=== PATIENT | female | born 1995 | race Caucasian/White ===

== ENCOUNTER 2021-05-22 18:05 | Emergency (ER) | payer MEDICAID ==
[~2021-05-22] VITALS: Ht 172 cm; Wt 63.5 kg
[2021-05-22 18:39] LABS: BILIRUBIN,URINE NEGATIVE (NEGATIVE); CLARITY,URINE CLEAR; COLOR,URINE YELLOW; GLUCOSE, URINE (UA) NEGATIVE (NEGATIVE); KETONES,URINE NEGATIVE (NEGATIVE); LEUKOCYTE ESTERASE ,URINE NEGATIVE (NEGATIVE); NITRITE,URINE NEGATIVE (NEGATIVE); PROTEIN,URINE NEGATIVE (NEGATIVE)
[2021-05-22 18:45] LABS: BACTERIA,URINE NEGATIVE /HPF; SQUAMOUS EPITHELIAL CELL,UR RARE /HPF
[2021-05-22 18:58] LABS: BASOPHILS % (AUTO) 0 % (0-10); EOSINOPHILS # (AUTO) 0.5 10^3/uL (0.0-0.3); EOSINOPHILS % (AUTO) 3 % (0-10); HEMATOCRIT 44 % (35-52); HEMOGLOBIN 14.4 g/dL (11.5-16.0); LYMPHOCYTES # (AUTO) 2.1 10^3/uL (1.0-4.0); LYMPHOCYTES % (AUTO) 16 % (12-44); MEAN CORPUSCULAR HEMOGLOBIN 31 pg (25-34); MEAN CORPUSCULAR HGB CONC 33 g/dL (32-36); MEAN CORPUSCULAR VOLUME 93 fL (80-99); MEAN PLATELET VOLUME 9.6 fL (9.0-12.2); MONOCYTES # (AUTO) 1.4 10^3/uL (0.0-1.0); MONOCYTES % (AUTO) 10 % (0-12); NEUTROPHILS # (AUTO) 9.6 10^3/uL (1.8-7.8); NEUTROPHILS % (AUTO) 70 % (42-75); PLATELET COUNT 301 10^3/uL (130-400); WHITE BLOOD COUNT 13.7 10^3/uL (4.3-11.0)
[2021-05-22] MEDS ORDERED: CEPH500T PO (19:09)
--- NOTE | 2021-05-22 19:10 | ED Cough/URI ---
General Chief Complaint: COVID19 Suspect/Confirmed Stated Complaint: BODY ACHES, LOSS OF TASTE/SMELL, EAR PAIN, CHILLS Nursing Triage Note: PT AMB TO ER WITH C/O HEADACHE, FEVER, AND NAUSEA FOR A FEW DAYS (JEANA GRIMES) History of Present Illness Date Seen by Provider: May 22, 2021 Time Seen by Provider: 18:20 Initial Comments 25 year old female presents with headache, sinus pressure, and intermittent nausea for approximately 1 week. She is received her COVID vaccine in spring 2020. She did not receive a booster. She has not had an influenza vaccine. She does not have a PCP in [place], just moved her. 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 She denies any drug use since rehab. In addition, she reports occ vaginal discharge and pain. She had chlamydia in the past, and was treated however her partner has not been. She also reports that he has discharge and pain at times. He has not been tested. Timing/Duration: just prior to arrival Severity/Quality: dry cough Prior Episodes/Possible Cause: no prior episodes Modifying Factors: Improves With Lying Down, Improves With Rest Associated Symptoms: cough, facial pain, fever/chills, nasal congestion, sinus infection (JEANA GRIMES) Allergies and Home Medications Allergies Coded Allergies: No Known Drug Allergies (Unverified , 05/22/21) Patient Home Medication List Home Medication List Reviewed: Yes (JEANA GRIMES) Doxycycline Hyclate (Doxycycline Hyclate) 100 Mg Tablet, 100 MG PO BID Prescribed by: JEANA GRIMES on 05/22/211929 Review of Systems Review of Systems Constitutional: see HPI, fever, malaise EENTM: see HPI, nose congestion Respiratory: see HPI, cough (dry) Cardiovascular: no symptoms reported, see HPI Gastrointestinal: no symptoms reported, see HPI (JEANA GRIMES) All Other Systems Reviewed Negative Unless Noted: Yes (JEANA GRIMES) Past Wiuslfy-Aiebum-Kjwnhr Hx Patient Social History Tobacco Use?: Yes Tobacco type used: Cigarettes Smoking Status: Current Everyday Smoker Substance use?: No Additional substance use comme: FORMER IV USER Alcohol Use?: No Pt feels they are or have been: No (JEANA GRIMES) Immunizations Up To Date Influenza Vaccine Up-to-Date: No; Not Current First/Initial COVID19 Vaccinat: AUGUST 2020 Second COVID19 Vaccination Jacky: SEPTEMBER 2020 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 oz. kg; 21.00 BMI Method: General Appearance: WD/WN, no apparent distress HEENT: PERRL/EOMI, TMs normal, pharynx normal; No pharyngeal erythema, No tonsillar exudate; other (Mild frontal and maxillary sinus tenderness) Neck: non-tender, full range of motion, supple, normal inspection Respiratory: chest non-tender, lungs clear, normal breath sounds Cardiovascular: normal peripheral pulses, regular rate, rhythm, no edema Gastrointestinal: normal bowel sounds, non tender, soft Extremities: normal range of motion, non-tender, normal inspection, normal capillary refill Neurologic/Psychiatric: no motor/sensory deficits, alert, normal mood/affect, oriented x 3 Skin: normal color, warm/dry (JEANA GRIMES) Procedures/Interventions Wound Location: Lower Extremities (Right knee, anterior) Wound Length (cm): 2.5 Wound's Depth, Shape: superficial Wound Explored: clean Irrigated w/ Saline (ccs): 500 Betadine Prep?: Yes Anesthesia: 1% Lidocaine Volume Anesthetic (ccs): 4 Wound Debrided: minimal Suture: Ethlion Suture Size: 4-0 Number of Sutures: 3 Sterile Dressing Applied?: Yes Progress Patient tolerated procedure well, sterile bulky dressing applied. (JEANA GRIMES) Progress/Results/Core Measures Suspected Sepsis SIRS Temperature: Pulse: 89 Respiratory Rate: 18 Laboratory Tests 05/22/21 18:50: White Blood Count 13.7H Blood Pressure 117 /84 Mean: 95 Laboratory Tests 05/22/21 18:50: Creatinine 0.73, Platelet Count 301, Total Bilirubin 0.3 (JEANA GRIMES) Results/Orders Lab Results Laboratory Tests Test 05/22/21 18:20 05/22/21 18:30 05/22/21 18:50 Range/Units Urine Color YELLOW Urine Clarity CLEAR Urine pH 6.0 5-9 Urine Specific [place] 1.010 L 1.016-1.022 Urine Protein NEGATIVE NEGATIVE Urine Glucose (UA) NEGATIVE NEGATIVE Urine Ketones NEGATIVE NEGATIVE Urine Nitrite NEGATIVE NEGATIVE Urine Bilirubin NEGATIVE NEGATIVE Urine Urobilinogen 0.2 < = 1.0 MG/DL Urine Leukocyte Esterase NEGATIVE NEGATIVE Urine RBC (Auto) NEGATIVE NEGATIVE Urine RBC NONE /HPF Urine WBC 2-5 /HPF Urine Squamous Epithelial Cells RARE /HPF Urine Crystals NONE /LPF Urine Bacteria NEGATIVE /HPF Urine Casts NONE /LPF Urine Mucus NEGATIVE /LPF Urine Culture Indicated NO Urine Chlamydia trachomatis RNA Not Detected Not Detected Urine Neisseria gonorrhoeae RNA Not Detected Not Detected Coronavirus (COVID-19)(PCR) Negative Negative Influenza Type A Antigen NEGATIVE NEGATIVE Influenza Type B Antigen NEGATIVE NEGATIVE SARS-CoV-2 RNA (RT-PCR) Negative Negative White Blood Count 13.7 H 4.3-11.0 10^3/uL Red Blood Count 4.66 3.80-5.11 10^6/uL Hemoglobin 14.4 11.5-16.0 g/dL Hematocrit 44 35-52 % Mean Corpuscular Volume 93 80-99 fL Mean Corpuscular Hemoglobin 31 25-34 pg Mean Corpuscular Hemoglobin Concent 33 32-36 g/dL Red Cell Distribution Width 11.4 10.0-14.5 % Platelet Count 301 130-400 10^3/uL Mean Platelet Volume 9.6 9.0-12.2 fL Immature Granulocyte % (Auto) 0 % Neutrophils (%) (Auto) 70 42-75 % Lymphocytes (%) (Auto) 16 12-44 % Monocytes (%) (Auto) 10 0-12 % Eosinophils (%) (Auto) 3 0-10 % Basophils (%) (Auto) 0 0-10 % Neutrophils # (Auto) 9.6 H 1.8-7.8 10^3/uL Lymphocytes # (Auto) 2.1 1.0-4.0 10^3/uL Monocytes # (Auto) 1.4 H 0.0-1.0 10^3/uL Eosinophils # (Auto) 0.5 H 0.0-0.3 10^3/uL Basophils # (Auto) 0.0 0.0-0.1 10^3/uL Immature Granulocyte # (Auto) 0.0 0.0-0.1 10^3/uL Sodium Level 137 135-145 MMOL/L Potassium Level 3.5 L 3.6-5.0 MMOL/L Chloride Level 107 98-107 MMOL/L Carbon Dioxide Level 21 21-32 MMOL/L Anion Gap 9 5-14 MMOL/L Blood Urea Nitrogen 10 7-18 MG/DL Creatinine 0.73 0.60-1.30 MG/DL Estimat Glomerular Filtration Rate 99 BUN/Creatinine Ratio 14 Glucose Level 77 70-105 MG/DL Calcium Level 9.6 8.5-10.1 MG/DL Corrected Calcium 9.4 8.5-10.1 MG/DL Total Bilirubin 0.3 0.1-1.0 MG/DL Aspartate Amino Transf (AST/SGOT) 49 H 5-34 U/L Alanine Aminotransferase (ALT/SGPT) 110 H 0-55 U/L Alkaline Phosphatase 70 40-136 U/L Total Protein 8.9 H 6.4-8.2 GM/DL Albumin 4.3 3.2-4.5 GM/DL (LEMUEL,ROSHAN K DO) Vital Signs/I&O 05/22/21 05/22/21 18:20 19:57 Temp 37.1 37.1 Pulse 89 84 Resp 18 18 B/P (MAP) 117/84 (95) 116/82 Pulse Ox 98 98 O2 Delivery Room Air Room Air (LEMUELROSHAN K DO) Vital Signs/I&O Capillary Refill : (JEANA GRIMES) Blood Pressure Mean: 95 Departure Impression Primary Impression: URI (upper respiratory infection) Qualified Codes: J06.9 - Acute upper respiratory infection, unspecified Additional Impressions: Person under investigation for COVID-19 Screening for STD (sexually transmitted disease) Disposition: 01 HOME, SELF-CARE Condition: Improved Departure-Patient Inst. Decision time for Depature: 18:50 (JEANA GRIMES) Referrals: [facility]/K Patient Instructions: COVID-19 (DC), Chlamydia (DC), Gonorrhea (DC), Viral Upper Respiratory Infection, Adult (DC) Add. Discharge Instructions: Establish care with Dr. Galen Bertrand at [facility], call for appt. No sexual intercourse until you complete antibiotics and your partner is treated and finishes all medications. We will call you with the STD testing results. Take antibiotics as prescribed. Take an immune multivitamin that has vitamin C, D and zinc. Increase water intake, 16 ounces every 2 hours while awake. Alternate between Tylenol 650 mg and ibuprofen 600 mg every 4 hours for pain or fever. Use Afrin nasal spray for 4 days and then discontinue, this will help with the sinus pressure. You can alternate between DayQuil and NyQuil for respiratory symptoms. You can go to [facility] Walk In care for non emergent medical concerns. We will notify you at the send out Covid test results. Return to Emergency Dept for new, urgent healthcare needs. Scripts Doxycycline Hyclate (Doxycycline Hyclate) 100 Mg Tablet 100 MG PO BID, #14 TAB 0 Refills Prov: JEANA GRIMES 05/22/21 ATTENDING PHYSICIAN NOTE: I WAS PHYSICALLY PRESENT ER PHYSICIAN WHEN THIS PATIENT WAS IN ER, BUT I WAS NOT INVOLVED IN ANY DECISION MAKING OR ANY CARE OF THIS PATIENT. (ROSHAN HDEZ DO) Copy Copies To 1: GALEN BERTRAND MD, AMY ARNP May 22, 2021 19:10 ROSHAN HDEZ DO May 26, 2021 06:17
[2021-05-22 19:26] LABS: ALBUMIN 4.3 GM/DL (3.2-4.5); POTASSIUM 3.5 MMOL/L (3.6-5.0)
[2021-05-22 19:27] LABS: CALCIUM 9.6 MG/DL (8.5-10.1)
[2021-05-22 19:29] LABS: TOTAL PROTEIN 8.9 GM/DL (6.4-8.2)
[2021-05-22 19:30] LABS: BILIRUBIN,TOTAL 0.3 MG/DL (0.1-1.0)
[2021-05-22] MEDS ORDERED: DOXY100T2 PO (19:30)
[2021-05-22 19:32] LABS: CREATININE SERUM 0.73 MG/DL (0.60-1.30)
[2021-05-22] MEDS ORDERED: cefTRIAXone 500 MG/5 ML ML IM ONE (19:45)
[2021-05-22] MEDS ORDERED: LIDOCAINE 1% INJ 20 ML 20 ML VIAL INJ ONE (19:45)
[2021-05-22 19:57] VITALS: BP 116/82
== END 2021-05-22 19:56 | disposition home or self-care (01) ==
LOC: ER 18:16
DX: J06.9 Acute upper respiratory infection, unspecified (principal); Z11.3 Encounter for screening for infections with a predominantly sexual mode of transmission; F17.210 Nicotine dependence, cigarettes, uncomplicated; Z20.822 Contact with and (suspected) exposure to COVID-19
CPT/HCPCS: 36415; 80053; 81000; 84703; 85025; 87491; 87591; 87635; 87636; 87804; 99284

== ENCOUNTER 2022-06-20 12:06 | Emergency (ER) | payer BC, MEDICAID ==
[~2022-06-20] VITALS: Ht 175.3 cm; Wt 76.2 kg
[~2022-06-20 12:06] MED LIST: CEPH500T PO; DOXY100T2 PO
--- NOTE | 2022-06-20 12:37 | ED GU-Female ---
General Chief Complaint: OB < 20 WEEKS Stated Complaint: 8-10 WEEKS | VAGINAL BLEEDING Nursing Triage Note: PT AMB TO ED BY POV WITH C/O BLEEDING AND CRAMPING. PT IS APPROX 6 WEEKS , LMP Apr. ABD CRAMPING AND BLEEDING EQUIVALENT TO PT NORMAL PERIOD BEGINNING LAST NIGHT. . Source: patient Exam Limitations: no limitations History of Present Illness Date Seen by Provider: Jun 20, 2022 Time Seen by Provider: 12:20 Initial Comments Patient is a 26-year-old female who presents to the emergency department for evaluation of vaginal bleeding and cramping in the context of early . Patient's LMP was the week before [place]. She states she began having some vaginal bleeding and lower abdominal cramping last night that patient states is similar to her normal menstrual pain. She is a G4, P3 female. She states she has had 3 healthy vaginal births in the past. Denies any recent abdominal trauma. States she has an appointment with her FELT CUTTING MACHINE OPERATOR on June 29 for normal checkup. She states she called FELT CUTTING MACHINE OPERATOR who referred her to the ER for further evaluation. Allergies and Home Medications Allergies Coded Allergies: No Known Drug Allergies (Unverified , 05/22/21) Patient Home Medication List Home Medication List Reviewed: Yes Doxycycline Hyclate (Doxycycline Hyclate) 100 Mg Tablet, 100 MG PO BID Prescribed by: JEANA GRIMES on 05/22/211929 Review of Systems Review of Systems Constitutional: no symptoms reported EENTM: no symptoms reported Respiratory: no symptoms reported Cardiovascular: no symptoms reported Gastrointestinal: no symptoms reported Genitourinary: see HPI : Yes LMP: May 09, 2022 Musculoskeletal: no symptoms reported Skin: no symptoms reported Psychiatric/Neurological: No Symptoms Reported Endocrine: No Symptoms Reported Past Ibuccnd-Jdtgnc-Dgegoz Hx Patient Social History Tobacco Use?: No Use of E-Cig and/or Vaping dev: No Substance use?: No Alcohol Use?: No Pt feels they are or have been: No Immunizations Up To Date Influenza Vaccine Up-to-Date: No; Not Current First/Initial COVID19 Vaccinat: AUGUST 2020 Second COVID19 Vaccination Jacky: SEPTEMBER 2020 Third COVID19 Vaccination Date: AUGUST 2020 Past Medical History Surgery/Hospitalization HX: HEP C, HERPES Last Menstrual Period: May 08, 2022 Physical Exam Vital Signs Vital Signs - First Documented 06/20/22 12:17 Temp 36.6 Pulse 68 Resp 18 B/P (MAP) 119/70 (86) Pulse Ox 100 O2 Delivery Room Air Capillary Refill : Less Than 3 Seconds Height, Weight, BMI Height: '" Weight: lbs. oz. kg; 24.00 BMI Method: General Appearance: WD/WN, no apparent distress HEENT: PERRL/EOMI, normal ENT inspection, TMs normal, pharynx normal Neck: non-tender, full range of motion, supple, normal inspection Cardiovascular: regular rate, rhythm Respiratory: chest non-tender, lungs clear, normal breath sounds, no respiratory distress, no accessory muscle use Gastrointestinal: normal bowel sounds, non tender, soft Extremities: normal range of motion Neurologic/Psychiatric: no motor/sensory deficits, alert, normal mood/affect, o riented x 3 Skin: normal color, warm/dry Procedures/Interventions Suture Size: 4-0 Progress/Results/Core Measures Suspected Sepsis SIRS Temperature: Pulse: 68 Respiratory Rate: 18 Blood Pressure 119 /70 Mean: 86 Results/Orders Lab Results Laboratory Tests Test 06/20/22 12:23 Range/Units Human Chorionic Gonadotropin, Quant 41621 H <5 MIU/ML My Orders Orders - MARTÍNEZREYNALDOSUAD TEAM MANAGER Hcg,Quantitative (06/20/22 12:35) Abo Rh Type (06/20/22 12:35) Vital Signs/I&O 06/20/22 12:17 Temp 36.6 Pulse 68 Resp 18 B/P (MAP) 119/70 (86) Pulse Ox 100 O2 Delivery Room Air Capillary Refill : Less Than 3 Seconds Blood Pressure Mean: 86 Progress Note : Progress Note Patient is nontoxic and well-hydrated on exam. No adventitious lung sounds or increased work of breathing noted. Abdominal exam is reassuring without distention/rigidity or focal provocation of pain with palpation. Patient ambulatory to the room without issue. Vital signs are reassuring. Orders placed for quantitative hCG and ABO/Rh. Quantitative hCG greater than 24,000. This does correlate with the expected values given patient's estimated 6 to 7 weeks of gestation. Patient is Rh+ meaning RhoGAM administration will not be necessary. There is obvious concern for possible miscarriage given sudden onset of bleeding and abdominal cramping in early however the work-up today does not conclusively rule in or out miscarriage. Patient was encouraged to closely follow-up with FELT CUTTING MACHINE OPERATOR for hCG recheck in 48 to 72 hours. Return precautions for urgent symptomology discussed. Patient verbalized understanding. Departure Impression Primary Impression: Threatened miscarriage in early Disposition: 01 HOME, SELF-CARE Condition: Stable Departure-Patient Inst. Decision time for Depature: 14:05 Referrals: NO,LOCAL PHYSICIAN (PCP/Family) Primary Care Physician Patient Instructions: Threatened Miscarriage (DC) Add. Discharge Instructions: You need to follow-up with your FELT CUTTING MACHINE OPERATOR in the next 2 to 3 days to have your hormone checked again to see if it is continuing to go up or if it is going down. This can further rule in or out miscarriage. All discharge instructions reviewed with patient and/or family. Voiced understanding. SUAD MARTÍNEZ APRN Jun 20, 2022 12:37
[2022-06-20 14:10] VITALS: BP 117/70
== END 2022-06-20 14:20 | disposition home or self-care (01) ==
LOC: EDUNIT# 12:06 → ER 12:08
DX: O20.0 Threatened abortion (principal); Z3A.00 Weeks of gestation of pregnancy not specified
CPT/HCPCS: 36415; 84702; 86900; 86901; 99282

== ENCOUNTER → 2022-06-22 | Outpatient (CLI) | payer BC | LOC: LAB 16:10 | PROVIDERS: ATTEND Nurse Practitioner Pediatrics | DX: O20.9 Hemorrhage in early pregnancy, unspecified (principal); Z3A.00 Weeks of gestation of pregnancy not specified | CPT/HCPCS: 36415; 84702 ==

== ENCOUNTER → 2022-09-28 | Outpatient (CLI) | payer BC ==
--- NOTE | 2022-09-28 17:14 | Diagnostic Imaging Report ---
INDICATION: , anatomic survey, 20 weeks 3 days. TECHNIQUE: Multiple real-time grayscale images were obtained over the gravid uterus. COMPARISON: None. FINDINGS: There is a single live intrauterine gestation in cephalic presentation. The placenta is posterior without evidence of previa. The cervix measures about 4.6 cm in length, and there is no funneling seen. A four-chamber heart is seen. The stomach is seen. The heart rate measures 144 BPM. The kidneys and bladder are seen. A three-vessel cord is demonstrated with two umbilical arteries. The cord insertion is seen. The upper and lower spine is seen. The lateral ventricle is seen. The cerebellum and cisterna magna are seen. The profile is seen. The right and left ventricular outflow tracts are seen. The amniotic fluid index measures 11.4 cm. Biometrical measurements are as follows: Biparietal 4.44 cm, age 19 weeks 3 days. Head circumference 17.21 cm, age 19 weeks 6 days. Abdominal circumference 14.31 cm, age 19 weeks 5 days. Femur length 3.20 cm, age 20 weeks 0 days. Sonographic estimate age: 19 weeks 6 days. Sonographic estimated date of delivery: 02/16/2023. Estimated Weight: 313 gm (+/- 11 gm). LMP percentile: 16%. heart rate: 144 beats per minute. number: 1 of 1. IMPRESSION: 1. Single live intrauterine gestation measuring at 19 weeks 6 days which is within range of the clinical dates. 2. Anatomic survey. No abnormality identified. Dictated by: Dictated on workstation # [id number]
== END ==
LOC: RAD 15:21
PROVIDERS: ATTEND Nurse Practitioner Women's Health
DX: Z34.02 Encounter for supervision of normal first pregnancy, second trimester (principal); Z3A.19 19 weeks gestation of pregnancy
CPT/HCPCS: 76805

== ENCOUNTER 2023-01-27 13:37 | Emergency (ER) | payer BC ==
[~2023-01-27] VITALS: Ht 170.1 cm; Wt 77.1 kg
--- NOTE | 2023-01-27 13:52 | ED GI ---
General Chief Complaint: Abdominal/GI Problems Stated Complaint: VOMITING/DIARRHEA Source of Information: Patient Exam Limitations: No Limitations History of Present Illness Date Seen by Provider: Jan 27, 2023 Time Seen by Provider: 13:44 Initial Comments 27-year-old female presents to the ER with reports of 4 days of vomiting, and di arrhea, and body aches. She also thinks she may have a low-grade temperature. She states that she has vomited once a day for the last 4 days, and has had several episodes of diarrhea every day. She reports that her has similar symptoms. She denies fevers, abdominal pain, dysuria. Patient is approximately 38 weeks , G4, P3. She denies any abnormal vaginal bleed ing or discharge. She states she is mostly worried that she may have COVID or the flu. Allergies and Home Medications Allergies Coded Allergies: No Known Drug Allergies (Unverified , 05/22/21) Patient Home Medication List Home Medication List Reviewed: Yes Doxycycline Hyclate (Doxycycline Hyclate) 100 Mg Tablet, 100 MG PO BID Prescribed by: JEANA GRIMES on 05/22/211929 Ondansetron (Ondansetron Odt) 4 Mg Tab.rapdis, 4 MG SL Q4H PRN for NAUSEA/VOMITING Prescribed by: Romi Villa on 01/27/23 1550 Review of Systems Review of Systems Constitutional: see HPI Past Vfgkbke-Zxfdes-Ogqjgf Hx Immunizations Up To Date First/Initial COVID19 Vaccinat: AUGUST 2020 Second COVID19 Vaccination Jacky: SEPTEMBER 2020 Third COVID19 Vaccination Date: AUGUST 2020 Past Medical History Surgery/Hospitalization HX: HEP C, HERPES Physical Exam Vital Signs Vital Signs - First Documented 01/27/23 13:45 Temp 36.8 Pulse 74 Resp 16 B/P (MAP) 100/70 (80) Pulse Ox 96 O2 Delivery Room Air Capillary Refill : Height/Weight/BMI Height: '" Weight: lbs. oz. kg; 24.00 BMI Method: General Appearance: WD/WN, no apparent distress Neck: supple, normal inspection Respiratory: lungs clear, normal breath sounds, no respiratory distress, no accessory muscle use Cardiovascular: regular rate, rhythm Extremities: normal range of motion, normal inspection Neurologic/Psychiatric: alert, normal mood/affect Skin: normal color, warm/dry Procedures/Interventions Suture Size: 4-0 Progress/Results/Core Measures Results/Orders Lab Results Laboratory Tests Test 01/27/23 13:58 01/27/23 14:13 01/27/23 15:02 Range/Units White Blood Count 7.7 4.3-11.0 10^3/uL Red Blood Count 4.05 3.80-5.11 10^6/uL Hemoglobin 13.0 11.5-16.0 g/dL Hematocrit 37 35-52 % Mean Corpuscular Volume 92 80-99 fL Mean Corpuscular Hemoglobin 32 25-34 pg Mean Corpuscular Hemoglobin Concent 35 32-36 g/dL Red Cell Distribution Width 11.9 10.0-14.5 % Platelet Count 250 130-400 10^3/uL Mean Platelet Volume 10.6 9.0-12.2 fL Immature Granulocyte % (Auto) 0 % Neutrophils (%) (Auto) 71 42-75 % Lymphocytes (%) (Auto) 16 12-44 % Monocytes (%) (Auto) 12 0-12 % Eosinophils (%) (Auto) 1 0-10 % Basophils (%) (Auto) 0 0-10 % Neutrophils # (Auto) 5.4 1.8-7.8 10^3/uL Lymphocytes # (Auto) 1.3 1.0-4.0 10^3/uL Monocytes # (Auto) 0.9 0.0-1.0 10^3/uL Eosinophils # (Auto) 0.1 0.0-0.3 10^3/uL Basophils # (Auto) 0.0 0.0-0.1 10^3/uL Immature Granulocyte # (Auto) 0.0 0.0-0.1 10^3/uL Sodium Level 138 135-145 MMOL/L Potassium Level 3.3 L 3.6-5.0 MMOL/L Chloride Level 109 H 98-107 MMOL/L Carbon Dioxide Level 18 L 21-32 MMOL/L Anion Gap 11 5-14 MMOL/L Blood Urea Nitrogen 11 7-18 MG/DL Creatinine 0.81 0.60-1.30 MG/DL Estimat Glomerular Filtration Rate 103 BUN/Creatinine Ratio 14 Glucose Level 79 70-105 MG/DL Calcium Level 8.3 L 8.5-10.1 MG/DL Corrected Calcium 8.7 8.5-10.1 MG/DL Total Bilirubin 0.3 0.1-1.0 MG/DL Aspartate Amino Transf (AST/SGOT) 25 5-34 U/L Alanine Aminotransferase (ALT/SGPT) 10 0-55 U/L Alkaline Phosphatase 149 H 40-136 U/L Total Protein 7.2 6.4-8.2 GM/DL Albumin 3.5 3.2-4.5 GM/DL Influenza Type A (RT-PCR) Not Detected Not Detecte Influenza Type B (RT-PCR) Not Detected Not Detecte SARS-CoV-2 RNA (RT-PCR) Not Detected Not Detecte Urine Color YELLOW Urine Clarity CLEAR Urine pH 5.5 5-9 Urine Specific [place] >=1.030 1.016-1.022 Urine Protein 1+ H NEGATIVE Urine Glucose (UA) NEGATIVE NEGATIVE Urine Ketones NEGATIVE NEGATIVE Urine Nitrite NEGATIVE NEGATIVE Urine Bilirubin NEGATIVE NEGATIVE Urine Urobilinogen 2.0 < = 1.0 MG/DL Urine Leukocyte Esterase NEGATIVE NEGATIVE Urine RBC (Auto) NEGATIVE NEGATIVE Urine RBC NONE /HPF Urine WBC 0-2 /HPF Urine Squamous Epithelial Cells 5-10 /HPF Urine Crystals NONE /LPF Urine Bacteria FEW H /HPF Urine Casts NONE /LPF Urine Mucus SMALL H /LPF Urine Culture Indicated YES My Orders Orders - ROMI TIMMONS TOP KNITTER Ua Culture If Indicated (01/27/23 13:43) Comprehensive Metabolic Panel (01/27/23 13:48) Ed Iv/Invasive Line Start (01/27/23 13:48) Cbc With Automated Diff (01/27/23 13:48) Ns Iv 1000 Ml (Ns Iv 1000 Ml) (01/27/23 14:00) Ondansetron Injection (Ondansetron Inj (01/27/23 14:00) Heart Tones (01/27/23 14:17) Covid 19 Inhouse Test (01/27/23 14:23) Influenza A And B By Pcr (01/27/23 14:23) Ns Iv 1000 Ml (Ns Iv 1000 Ml) (01/27/23 15:00) Urine Culture (01/27/23 15:02) Medications Given in ED Current Medications Medications Dose Ordered Sig/Bryant Route Start Time Stop Time Status Last Admin Dose Admin Ondansetron HCl 4 mg ONCE ONCE IVP 01/27/23 14:00 01/27/23 14:01 DC 01/27/23 14:10 4 MG Vital Signs/I&O 01/27/23 01/27/23 13:45 15:55 Temp 36.8 Pulse 74 63 Resp 16 16 B/P (MAP) 100/70 (80) 106/72 Pulse Ox 96 99 O2 Delivery Room Air Room Air Progress Progress Note : Progress Note Patient seen and evaluated, resting comfortably in bed, no acute distress. On exam and symptoms, work-up initially included CBC, CMP, UA, COVID, flu swabs. IV fluids and Zofran ordered. 1548 Labs reviewed. CBC grossly normal. CMP shows slightly elevated chloride 108, slight decreased CO2 18, slightly decreased potassium 3.3. COVID and flu negative. Urinalysis shows elevated urine specific gravity 1.030. Shows n egative leukocytes, negative nitrites, 0-2 WBCs, 5-10 squamous epithelial cells, few bacteria. Specimen appears contaminated. Patient appears slightly dehydrated based on labs, second liter of fluid was administered. Results discussed with patient. This is likely a viral gastroenteritis. heart tones were completed and normal. Patient declines any abdominal pain or cramp ing. I do not think that patient needs to be seen by OB as well. Discharge instructions and return precautions provided. Departure Impression Primary Impression: Viral gastroenteritis Disposition: HOME, SELF-CARE Condition: Stable Departure-Patient Inst. Decision time for Depature: 15:48 Referrals: JIMBO LOYOLA DO (PCP) Primary Care Physician NO,LOCAL PHYSICIAN (Family) Primary Care Physician Patient Instructions: Viral gastroenteritis in adults Add. Discharge Instructions: Make sure you are staying hydrated. Make sure you are drinking plenty of water. You may add Liquid IV or other electrolyte powder to your water to help with hydration and to increase your potassium intake. Take Zofran as needed for nausea and vomiting, it can cause constipation. Follow-up with your CASINO FLOOR SUPERVISOR. Return for any new, concerning, or worsening symptoms. All discharge instructions reviewed with patient and/or family. Voiced understanding. Scripts Ondansetron (Ondansetron Odt) 4 Mg Tab.rapdis 4 MG SL Q4H PRN for NAUSEA/VOMITING, #10 TAB 0 Refills Prov: ROMI TIMMONS APRN 01/27/23 ROMI TIMMONS APRN Jan 27, 2023 13:52
[2023-01-27] MEDS ORDERED: NS IV 1000 ML 1,000 ML IV SCH ×2 (14:00→15:00)
[2023-01-27] MEDS ORDERED: ONDANSETRON INJECTION 4 MG/2 ML (SDV) IVP ONE (14:00)
[2023-01-27 14:03] LABS: BASOPHILS % (AUTO) 0 % (0-10); EOSINOPHILS # (AUTO) 0.1 10^3/uL (0.0-0.3); EOSINOPHILS % (AUTO) 1 % (0-10); HEMATOCRIT 37 % (35-52); LYMPHOCYTES # (AUTO) 1.3 10^3/uL (1.0-4.0); LYMPHOCYTES % (AUTO) 16 % (12-44); MEAN CORPUSCULAR HEMOGLOBIN 32 pg (25-34); MEAN CORPUSCULAR HGB CONC 35 g/dL (32-36); MEAN CORPUSCULAR VOLUME 92 fL (80-99); MEAN PLATELET VOLUME 10.6 fL (9.0-12.2); MONOCYTES # (AUTO) 0.9 10^3/uL (0.0-1.0); MONOCYTES % (AUTO) 12 % (0-12); NEUTROPHILS # (AUTO) 5.4 10^3/uL (1.8-7.8); NEUTROPHILS % (AUTO) 71 % (42-75); PLATELET COUNT 250 10^3/uL (130-400); WHITE BLOOD COUNT 7.7 10^3/uL (4.3-11.0)
[2023-01-27 14:20] LABS: ALBUMIN 3.5 GM/DL (3.2-4.5); BILIRUBIN,TOTAL 0.3 MG/DL (0.1-1.0); CALCIUM 8.3 MG/DL (8.5-10.1); CREATININE SERUM 0.81 MG/DL (0.60-1.30); POTASSIUM 3.3 MMOL/L (3.6-5.0); TOTAL PROTEIN 7.2 GM/DL (6.4-8.2)
[2023-01-27 15:34] LABS: BILIRUBIN,URINE NEGATIVE (NEGATIVE); CLARITY,URINE CLEAR; COLOR,URINE YELLOW; GLUCOSE, URINE (UA) NEGATIVE (NEGATIVE); KETONES,URINE NEGATIVE (NEGATIVE); NITRITE,URINE NEGATIVE (NEGATIVE); PH,URINE 5.5 (5-9); PROTEIN,URINE 1+ (NEGATIVE)
[2023-01-27 15:35] LABS: BACTERIA,URINE FEW /HPF; LEUKOCYTE ESTERASE ,URINE NEGATIVE (NEGATIVE); WBC,URINE 0-2 /HPF
[2023-01-27] MEDS ORDERED: ONDA4TAB11 SL (15:50)
[2023-01-27 15:55] VITALS: BP 106/72
== END 2023-01-27 15:55 | disposition home or self-care (01) ==
LOC: EDUNIT# 13:37 → ER 13:39
DX: O99.613 Diseases of the digestive system complicating pregnancy, third trimester (principal); A08.4 Viral intestinal infection, unspecified; Z3A.38 38 weeks gestation of pregnancy; Z20.822 Contact with and (suspected) exposure to COVID-19
CPT/HCPCS: 36415; 80053; 81000; 85025; 87088; 87636